=== PATIENT | male | born 1950 | race Caucasian/White ===

== ENCOUNTER 2020-08-12 08:19 | Emergency (ER) | payer OTHER ==
[~2020-08-12] VITALS: Ht 175.3 cm; Wt 90.7 kg
[2020-08-12] MEDS ORDERED: CARVEDILOL6.25 M1 PO (08:45)
[2020-08-12] MEDS ORDERED: METFORMIN HCL500 M3 PO (08:45)
[2020-08-12] MEDS ORDERED: NORVASC10 MG PO (08:45)
[2020-08-12] MEDS ORDERED: LOSARTAN-HCTZ1 EAC3 PO (08:45)
[2020-08-12 08:46] LABS: BASOPHILS 0.5 %; HEMOGLOBIN 12.8 gm/dL (14.0-18.0); NUCLEATED RBCS 0 /100WBC; RDW-CV 14.1 % (10.5-14.5)
[2020-08-12] MEDS ORDERED: SUPER B COMPLE1 EAC2 PO (08:46)
[2020-08-12] MEDS ORDERED: ZOCOR 10 MG TAB10 M1 PO (08:46)
[2020-08-12] MEDS ORDERED: COQ-10100 MG PO (08:46)
[2020-08-12] MEDS ORDERED: ASA81BEC PO (08:46)
[2020-08-12] MEDS ORDERED: SUPER THERAVIT1 EACH PO (08:46)
[2020-08-12] MEDS ORDERED: FISH OIL 1,0001 EAC9 PO (08:46)
[2020-08-12 08:51] LABS: ABSOLUTE BASOPHILS 0.1 thou/uL (0.0-0.2); ABSOLUTE EOSINOPHILS 0.1 thou/uL (0.0-0.7); ABSOLUTE LYMPHOCYTES 1.7 thou/uL (0.8-5.3); ABSOLUTE MONOCYTES 0.8 thou/uL (0.0-1.2); ABSOLUTE NEUTROPHILS 8.5 thou/uL (1.6-8.1); EOSINOPHILS 1.3 %; HEMATOCRIT 38.2 % (42.0-52.0); LYMPHOCYTES 15.6 %; MCH 28.5 pg (26.0-34.0); MCHC 33.4 g/dL (28.0-37.0); MCV 85.4 fL (80.0-100.0); MONOCYTES 6.8 %; PLATELET COUNT* 227 thou/uL (150-400); POLYS 75.8 %; RBC 4.48 mil/uL (4.50-6.00); WBC 11.2 thou/uL (4.0-11.0)
[2020-08-12 08:56] LABS: CALCIUM 8.8 mg/dL (8.5-10.1); CREATININE 0.8 mg/dL (0.6-1.3); POTASSIUM 3.3 mmol/L (3.5-5.1)
[2020-08-12 09:12] LABS: CK-MB MASS 1.1 ng/mL (<0.5-3.6); MAGNESIUM 1.1 mg/dL (1.8-2.4); TOTAL BILIRUBIN 1.6 mg/dL (<0.1-1.0)
[2020-08-12 12:39] VITALS: BP 110/62
--- NOTE | 2020-08-13 11:33 | EKG ---
[place] [address] ELECTROCARDIOGRAM REPORT Name: LAURA RODRIGUEZ Room: [facility]#: [id number] Admission: 08/12/20 Attend Phys: Discharge: 08/12/20 Date of : 48 Date of Service: 08/12/20 0825 Report #: [id number] THIS REPORT FOR: //name// [facility] ED Test Date: 2020-08-12 Test Time: 08:25:27 Pat Name: LAURA RODRIGUEZ Department: Room: Gender: [employer]: : 1950 Requested By: Matthew Everett Order Number: [id number] MD: Sumit Faulkner Measurements Intervals Industry Rate: 64 P: 3 CA: 176 QRS: -39 QRSD: 132 T: 20 QT: 438 QTc: 452 Interpretive Statements Sinus rhythm Nonspecific IVCD with LAD No previous ECG available for comparison Electronically Signed On 08-13-2020 11:33:16 CDT by Sumit Faulkner [email or web address] <ELECTRONICALLY SIGNED> By: Sumit Faulkner MD, [facility] 08/13/20 1133 4 4 Sumit Faulkner MD, [facility] /EPI
== END 2020-08-12 12:40 | disposition home or self-care (01) ==
LOC: M.ERS 08:19
PROVIDERS: Family Medicine
DX: R07.89 Other chest pain (principal); I50.9 Heart failure, unspecified; E11.9 Type 2 diabetes mellitus without complications; Z86.73 Personal history of transient ischemic attack (TIA), and cerebral infarction without residual deficits

== ENCOUNTER → 2021-01-19 | Outpatient (CLI) | payer OTHER ==
[~2021-01-19] MED LIST: ASA81BEC PO; CARVEDILOL6.25 M1 PO; COQ-10100 MG PO; FISH OIL 1,0001 EAC9 PO; LOSARTAN-HCTZ1 EAC3 PO; METFORMIN HCL500 M3 PO; NORVASC10 MG PO; SUPER B COMPLE1 EAC2 PO; SUPER THERAVIT1 EACH PO; ZOCOR 10 MG TAB10 M1 PO
== END ==
LOC: M.MRI 07:01
PROVIDERS: ATTEND Orthopaedic Surgery
DX: S83.282A Other tear of lateral meniscus, current injury, left knee, initial encounter (principal); S83.242A Other tear of medial meniscus, current injury, left knee, initial encounter; M17.12 Unilateral primary osteoarthritis, left knee; M25.462 Effusion, left knee; X58.XXXA Exposure to other specified factors, initial encounter; Y93.89 Activity, other specified; Y92.89 Other specified places as the place of occurrence of the external cause; Y99.8 Other external cause status

== ENCOUNTER → 2021-02-10 | Outpatient (CLI) | payer OTHER ==
[~2021-02-10] MED LIST changes: +ASPIRIN325 PO; +CO Q10100 MG PO; +COREG6.25 MG PO; +OMEGA-3 FISH O1 EAC9 PO
[2021-02-10 09:14] LABS: ABSOLUTE BASOPHILS 0.1 thou/uL (0.0-0.2); ABSOLUTE EOSINOPHILS 0.4 thou/uL (0.0-0.7); ABSOLUTE MONOCYTES 0.7 thou/uL (0.0-1.2); BASOPHILS 0.7 %; HEMATOCRIT 41.4 % (42.0-52.0); HEMOGLOBIN 13.8 gm/dL (14.0-18.0); LYMPHOCYTES 36.4 %; MCH 28.4 pg (26.0-34.0); MCHC 33.3 g/dL (28.0-37.0); MCV 85.4 fL (80.0-100.0); MONOCYTES 8.9 %; MPV 7.9 fl. (7.2-11.1); NUCLEATED RBCS 0 /100WBC; PLATELET COUNT* 240 thou/uL (150-400); RBC 4.85 mil/uL (4.50-6.00); RDW-CV 14.7 % (10.5-14.5); WBC 8.2 thou/uL (4.0-11.0)
[2021-02-10 09:34] LABS: INR 1.1
[2021-02-10 09:35] LABS: ALBUMIN 3.8 g/dL (3.4-5.0); CALCIUM 9.2 mg/dL (8.5-10.1); TOTAL BILIRUBIN 0.3 mg/dL (<0.1-1.0); TOTAL PROTEIN 7.5 g/dL (6.4-8.2)
== END ==
LOC: M.LAB 02-03 07:03
PROVIDERS: ATTEND Orthopaedic Surgery
DX: Z01.818 Encounter for other preprocedural examination (principal); Z01.812 Encounter for preprocedural laboratory examination; M17.12 Unilateral primary osteoarthritis, left knee

== ENCOUNTER 2021-02-16 07:02 | Observation (INO) | payer BC ==
[~2021-02-16] VITALS: Ht 152.4 cm; Wt 88.5 kg
[2021-03-16 09:30] VITALS: BP 133/87
[2021-03-16 16:13] VITALS: BP 178/91
[2021-03-16 21:00] VITALS: BP 121/74
[2021-03-17] VITALS: BP 131/81
[2021-03-17 05:33] LABS: HEMATOCRIT 33.5 % (42.0-52.0); HEMOGLOBIN 11.1 gm/dL (14.0-18.0)
[2021-03-17 08:55] VITALS: BP 107/74
[2021-03-17] MEDS ORDERED: COLACE 100 MG100 MG PO (09:49)
[2021-03-17] MEDS ORDERED: OXYCODONE HCL 55 MG PO (09:49)
[2021-03-17] MEDS ORDERED: XARELTO10 MG PO (09:49)
[2021-03-17 12:15] VITALS: BP 107/74
[2021-03-17 13:48] VITALS: BP 107/74
--- NOTE | 2021-03-19 12:42 | OP ---
[address] [address] OPERATIVE REPORT Name: LAURA RODRIGUEZ Room: [address] [place]#: [id number] Admission: 03/16/21 Attend Phys: Ursula Bai Discharge: 03/17/21 Date of : 48 Report #: [id number] THIS REPORT FOR: cc: Chas Riley Russell J. DO Greiner, Robert F. II DO ~ DATE OF SURGERY: 03/16/2021 PREOPERATIVE DIAGNOSIS: Left knee osteoarthritis. POSTOPERATIVE DIAGNOSIS: Left knee osteoarthritis. PROCEDURE: Left total knee arthroplasty. SURGEON: Ben Butler II, DO. CONSUMER MARKETING ANALYST: SHIELA Astudillo. ANESTHESIA: General endotracheal. ESTIMATED BLOOD LOSS: 50 mL ANTIBIOTICS: Ancef preoperatively. DRAINS: Medium Hemovac. COMPLICATIONS: None. CONDITION: The patient stable to recovery room. IMPLANTS: Listed in operative record and progress note. BRIEF HISTORY: The patient in the preoperative area. Preoperative H and P was performed. Site was marked, questions were answered. Risks and benefits were discussed with the patient in detail about surgery. The patient wished to proceed assuming all risks. DESCRIPTION OF PROCEDURE: The patient was taken to operative suite, placed supine on the table, given appropriate anesthesia. A well-padded tourniquet was applied to the upper thigh, which was inflated to 300 mmHg after gravity exsanguination. The operative knee was sterilely prepped and draped. Surgery began by midline incision, was carried down to subcutaneous tissues. A medial parapatellar arthrotomy was performed down to bone. Patella was then everted and excess soft tissues were removed from the femur. Femoral cutting block was then applied, checked with a drop rotational alignment, pinned in appropriate position and appropriate cuts were made. A 4-in-[place] [address] OPERATIVE REPORT Name: LAURA RODRIGUEZ EFRAIN Room: [address] [place].#: [id number] Admission: 03/16/21 Attend Phys: Ursula Bai Discharge: 03/17/21 Date of : 48 Report #: [id number] applied, checked for rotational alignment, pinned in appropriate position and appropriate cuts were made. The tibia was then exposed. Excess meniscus was removed. Retractor was placed on collateral ligaments. Tibial cutting block was then applied, pinned in appropriate position, checked with a drop rotational alignment and slope and appropriate cut was made. The tibial bone was removed. The tibial baseplate was then applied, checked for rotational alignment with the drop desire and pinned in appropriate position. Femur was then applied and box cut was reamed. This was then trialed with appropriate spacer, which showed excellent fit and fill and excellent stability to the knee through all range of motion. The patella was reamed in appropriate fashion, sized to appropriate size. Three peg holes were drilled and it was then trialed and showed excellent flexion, extension, excellent tracking patella within the groove. These trials were removed. Tibia was punched in appropriate fashion. Bone ends were cleansed with Pulsavac irrigation and cement was mixed, applied to final implants. These were then malleted into position and held the knee extension and compressed to allow cement to cure. After it cured, excess was removed utilizing Hustisford and osteotome. Wound was copiously irrigated and the final spacer was malleted into position. Tourniquet was deflated. Hemostasis was maintained with electrocautery. Pain cocktail was injected. Medium Hemovac drain was applied. Capsule was closed with #2 FiberWire and 1 Vicryl in [id number]-[id number]-[id number] fashion. Skin was closed with 2-0 Vicryl and running 3-0 Monocryl. Dermabond was applied. Ry wrap and PolarCare applied. The patient transported to recovery in stable condition. Counts were correct throughout the procedure. <ELECTRONICALLY SIGNED> By: Ben Butler II, DO 03/19/21 1242 [id number] [id number] Butler II, DO /paulino
== END 2021-03-17 13:30 | disposition home or self-care (01) ==
LOC: M.ORTHSURG → M.TBA 03-16 08:55 → M.2W 03-16 08:55
PROVIDERS: Orthopaedic Surgery; ADMIT Internal Medicine; ATTEND Internal Medicine
DX: M17.12 Unilateral primary osteoarthritis, left knee (principal); R07.89 Other chest pain; Z20.822 Contact with and (suspected) exposure to COVID-19; Z79.899 Other long term (current) drug therapy; Z88.8 Allergy status to other drugs, medicaments and biological substances

== ENCOUNTER → 2021-03-15 | Outpatient (CLI) | payer BC ==
[~2021-03-15] MED LIST changes: +COLACE 100 MG100 MG PO; +OXYCODONE HCL 55 MG PO; +XARELTO10 MG PO
[2021-03-15 13:26] LABS: URINE BILIRUBIN NEGATIVE (Negative); URINE BLOOD NEGATIVE (Negative); URINE CLARITY CLEAR; URINE COLOR YELLOW; URINE GLUCOSE-RANDOM NEGATIVE (Negative); URINE KETONES NEGATIVE (Negative); URINE LEUKOCYTES-REFLEX NEGATIVE (Negative); URINE NITRITE-REFLEX NEGATIVE (Negative); URINE PROTEIN NEGATIVE (Negative); URINE UROBILINOGEN 0.2 E.U./dl (0.2-1.0)
== END ==
LOC: M.LAB 12:46
PROVIDERS: ATTEND Orthopaedic Surgery
DX: Z01.812 Encounter for preprocedural laboratory examination (principal); Z20.822 Contact with and (suspected) exposure to COVID-19